=== PATIENT | female | born 1965 | race Caucasian/White ===

== ENCOUNTER → 2017-12-17 18:21 | Outpatient (CLI) | payer OTHER, SELFPAY ==
[2017-12-23 12:03] LABS: HPV Reflexed? NOT INDICATED
== END ==
PROVIDERS: Visit Provider Obstetrics & Gynecology
DX: Z12.4 Encounter for screening for malignant neoplasm of cervix (principal)
CPT/HCPCS: 88175; G0145

== ENCOUNTER → 2019-04-30 | Outpatient (CLI) | payer OTHER, SELFPAY ==
[2019-05-07 11:28] LABS: HPV Reflexed? NOT INDICATED
== END | disposition home or self-care (01) ==
LOC: LABSPEC 11:15
PROVIDERS: Visit Provider Obstetrics & Gynecology
DX: Z12.4 Encounter for screening for malignant neoplasm of cervix (principal)
CPT/HCPCS: 88175; G0145